=== PATIENT | female | born 1940 | race Caucasian/White ===

== ENCOUNTER → 2016-06-17 | Outpatient (CLI) | payer MEDICARE, OTHER | END | disposition home or self-care (01) | LOC: GMAL 09:40 | PROVIDERS: ATTEND Family Medicine | DX: E55.9 Vitamin D deficiency, unspecified (principal) ==

== ENCOUNTER → 2017-02-03 | Outpatient (CLI) | payer MEDICARE, OTHER | END | disposition home or self-care (01) | LOC: GMAL 11:21 | PROVIDERS: ATTEND Family Medicine | DX: R53.83 Other fatigue (principal); D51.3 Other dietary vitamin B12 deficiency anemia; I10 Essential (primary) hypertension; E11.9 Type 2 diabetes mellitus without complications; E78.4 Other hyperlipidemia ==

== ENCOUNTER → 2017-07-21 | Outpatient (CLI) | payer MEDICARE, OTHER | LOC: GMAL 10:17 | PROVIDERS: ATTEND Family Medicine | DX: E55.9 Vitamin D deficiency, unspecified (principal) ==

== ENCOUNTER 2018-11-01 18:29 | Emergency (ER) | payer MEDICARE, OTHER ==
[2018-11-01] MEDS ORDERED: ASPIRIN TABLET 325 MG TAB ONE (18:46)
[2018-11-01] MEDS ORDERED: NITROGLYCERIN 0.4 MG 25 EA TAB SL ONE ×2 (18:46→19:29)
[2018-11-01 19:05] VITALS: TEMP 97.4
--- NOTE | 2018-11-01 19:28 | RAD ---
EXAM: XR Chest, 1 View CLINICAL HISTORY: 78 years old and is Female; chest pain TECHNIQUE: Frontal view of the chest. COMPARISON: No relevant prior studies available. FINDINGS: Limitations: None. Lungs: Minimal left basilar scar or atelectasis. Pleural space: Unremarkable. No pneumothorax. Heart: Coronary bypass changes present. Mediastinum: Unremarkable. Bones/joints: Unremarkable. IMPRESSION: No significant acute abnormality noted. Electronically signed by: Su Pacheco MD 11/01/2018 7:26 PM CDT
[2018-11-01] MEDS ORDERED: ASPIRIN TABLET 325 MG TAB PO ONE ×2 (19:29→20:36)
--- NOTE | 2018-11-01 20:29 | ED.PDOC ---
History of Present Illness - General Chief Complaint: Chest Pain/MS Stated Complaint: chest pain,shortness of breath Time Seen by Provider: 11/01/18 18:44 Source: patient, family Exam Limitations: no limitations - History of Present Illness Initial Comments: 78 yo female with known CAD presents c/o intermittent chest pain x 2 days. None presently. Timing/Duration: 1/2 hour, changing over time, resolved prior to arrival Severity/Quality: mild, sharp, tightness Location: central Chest Pain Radiation: back Activities at Onset: none Prior Chest Pain/Cardiac Workup: other - CABG; no stress tests or cath in many years Improving Factors: other - NTG Worsening Factors: nothing Nitro Today/Relief: no nitro taken today Associated Symptoms: edema, fatigue, shortness of breath, weakness Allergies/Adverse Reactions: Allergies NO KNOWN ALLERGY Allergy (Verified 11/01/18 19:05) Review of Systems - Review of Systems Constitutional: States: no symptoms reported EENTM: States: no symptoms reported Respiratory: States: see HPI Cardiology: States: see HPI Gastrointestinal/Abdominal: States: no symptoms reported Genitourinary: States: no symptoms reported Musculoskeletal: States: see HPI Skin: States: no symptoms reported Neurological: States: no symptoms reported Hematologic/Lymphatic: States: no symptoms reported Past Medical History (General) - Patient Medical History Hx Stroke: No Hx Cardiac Disorders: Yes Hx Congestive Heart Failure: No Hx Diabetes: No Hx Cancer: Yes - Bladder Surgical History: coronary bypass surgery, tonsillectomy, Hysterectomy - Vaccination History Hx Influenza Vaccination: Yes Hx Pneumococcal Vaccination: Yes - Social History Hx Tobacco Use: No Family Medical History - Family History Mother Family History: Unknown Living Status: Unknown Physical Exam - Physical Exam General Appearance: Alert, Comfortable, No apparent distress Eyes, Ears, Nose, Throat Exam: normal ENT inspection Neck: supple, normal inspection Respiratory: lungs clear, no respiratory distress Cardiovascular/Chest: regular rate, rhythm, no JVD, no murmur Gastrointestinal/Abdominal: non tender, soft, no organomegaly Extremity: normal range of motion, normal inspection, no calf tenderness, other - left leg slightly swollen - chronic; point tenderness to her upper back, left of midline Neurologic: alert, normal mood/affect, oriented x 3 Skin Exam: normal color, warm/dry Progress - Results/Orders Results/Orders: Tr <0.02 D-d 0.4 Hgb 13 - EKG/XRAY/CT EKG: Sinus, nonspecific ST T wave Chg - NSR @ 76; nml axis, intervals, QRS, ST segments; nonspecific T wave changes XRAY: chest - no acute process - Consult/PCP Time Called: 19:20 Consult/PCP: Dr. Green - accepted in transfer Departure - Departure Clinical Impression: Chest pain Qualifiers: Chest pain type: unspecified Qualified Code(s): R07.9 - Chest pain, unspecified Time of Disposition: 20:35 Disposition: Transfer to Hospital Condition: Good Transfer to Outside Facility - Transfer Information Accepting Provider:: Dr. Green Accepting Facility: [facility] Reason for Transfer: required specialist not available
[2018-11-01 22:40] VITALS: BP 145/64; O2SAT 96
== END 2018-11-01 22:48 | disposition short-term general hospital (02) ==
LOC: ER 18:29
DX: R07.9 Chest pain, unspecified (principal); I25.10 Atherosclerotic heart disease of native coronary artery without angina pectoris; Z95.1 Presence of aortocoronary bypass graft; Z85.51 Personal history of malignant neoplasm of bladder

== ENCOUNTER → 2019-02-13 | Outpatient (CLI) | payer MEDICARE, OTHER | LOC: GMAL 10:18 | PROVIDERS: ATTEND Family Medicine | DX: D50.8 Other iron deficiency anemias (principal); E55.9 Vitamin D deficiency, unspecified; I10 Essential (primary) hypertension; E78.49 Other hyperlipidemia ==

== ENCOUNTER → 2020-03-04 | Outpatient (CLI) | payer MEDICARE, OTHER | LOC: GMAL 11:01 | PROVIDERS: ATTEND Family Medicine | DX: D51.3 Other dietary vitamin B12 deficiency anemia (principal); E55.9 Vitamin D deficiency, unspecified; Z79.899 Other long term (current) drug therapy; E11.9 Type 2 diabetes mellitus without complications; E78.49 Other hyperlipidemia ==

== ENCOUNTER 2020-06-26 19:18 | Emergency (ER) | payer MEDICARE, OTHER ==
[2020-06-26] MEDS ORDERED: PANTOPRAZOLE SODIUM IV 40 MG VIAL IV ONE (19:30)
[2020-06-26] MEDS ORDERED: SUCRALFATE 1 GM/10 ML 1 GM UD PO ONE (19:30)
--- NOTE | 2020-06-26 20:19 | RAD ---
ABDOMEN SERIES AND CHEST, XR CLINICAL HISTORY: Nausea and vomiting. COMPARISON: CT abdomen and pelvis September 14, 2018 TECHNIQUE: Two views of the abdomen. Single frontal view of the chest FINDINGS: Chest: Heart is normal in size. There is been prior median sternotomy. There is aortic arch atherosclerosis. Normal pulmonary vascularity. There is mild left lower lobe atelectasis/scar. No consolidation. Pleural spaces are clear. Lungs are hyperinflated. There is mild lower thoracic degenerative change. Abdomen: Scattered air and stool throughout the colon. There is scattered mild small bowel air. There is no free air. No pathologic abdominal calcifications. Bowel caliber and distribution is normal. There are mild degenerative lumbar spine changes. Moderate degenerative hypertrophic changes are seen throughout the iliac bones and proximal femurs. IMPRESSION: 1. Hyperinflation. Left lower lobe atelectasis/scar. No acute chest disease. 2. No acute finding within the abdomen. Electronically signed by: Mishel Lozoya DO 06/26/2020 8:18 PM THEATRICAL PERFORMER
[2020-06-26] MEDS ORDERED: cefTRIAXone SODIUM 1 GM in SODIUM CHL 0.9% 50ML MIN-BAG+ 50 ML IVPB ONE (20:21)
[2020-06-26] MEDS ORDERED: levoFLOXacin 500MG IV 500 MG in PREMIX BAG 1 BAG IVPB ONE (20:25)
--- NOTE | 2020-06-26 20:25 | CT ---
EXAM: CT head CLINICAL INDICATION: Slurred speech COMPARISON: There is no previous study for comparison. TECHNIQUE: CT scan was done using contiguous axial 5 mm sections through the brain. This exam was performed according to our departmental dose-optimization program, which includes automated exposure control, adjustment of the mA and/or kV according to patient size and/or use of iterative reconstruction technique. FINDINGS: There is no midline shift, mass effect, or extraaxial fluid collection. There is no evidence of acute intracranial hemorrhage, mass lesion, or cerebral edema. Mild diffuse atrophy and nonspecific chronic ischemic changes are identified. Bone window images reveal no evidence of a skull fracture. IMPRESSION: No evidence of an acute intracranial process. Electronically signed by: Wesley Nixon MD 06/26/2020 8:23 PM MAMMAL CONTROL AGENT
[2020-06-26] MEDS ORDERED: IPRATROPIUM/ALBUTEROL 3 ML VIAL NEB ONE ×2 (20:28→20:29)
--- NOTE | 2020-06-26 20:56 | ED.PDOC ---
History of Present Illness - General Chief Complaint: Abdominal Pain Stated Complaint: abd pain Time Seen by Provider: 06/26/20 19:19 Source: patient Exam Limitations: no limitations - History of Present Illness Initial Comments: The patient is a 80-year-old female presented emergency room secondary to feeling poorly for the last 3 to 4 days. Family reports that she has been a little bit unsteady on her feet and there is some question of may be slurring her speech earlier in the day. She is alert and oriented currently. She is pleasant and cooperative. On exam she does have some epigastric discomfort to palpation. Is currently being treated for bladder cancer and has had urinary tract infections in the past. She thinks she may have run a low-grade temper ature earlier in the day. She did have some nausea and vomiting x1 today. No blood. Timing/Duration: other - 2 days Severity: moderate Improving Factors: nothing Worsening Factors: nothing Associated Symptoms: malaise, nausea/vomiting Allergies/Adverse Reactions: Allergies NO KNOWN ALLERGY Allergy (Verified 11/01/18 19:05) Home Medications: Ambulatory Orders Amoxicillin & Pot Clavulanate [Augmentin Tab] 875 mg PO BID #14 tab 06/26/20 Ascorbic Acid [Vitamin C] 1,000 mg PO 06/26/20 Aspirin [Aspirin 81 Low Dose] 81 mg PO DAILY 06/26/20 Cholecalciferol [Vitamin D-3] 2,000 unit PO DAILY 06/26/20 Ciprofloxacin [Cipro] 500 mg PO BID #14 tab 06/26/20 Escitalopram Oxalate [Lexapro] 20 mg PO DAILY 06/26/20 Ferrous Sulfate [Iron] 325 mg PO DAILY 06/26/20 Fexofenadine HCl [24Hr Allergy Relief] 180 mg PO DAILY PRN 06/26/20 Guaifenesin [Mucinex] 600 mg PO Q12HR PRN 06/26/20 Metformin HCl [Fortamet] 500 mg PO BID 06/26/20 Simvastatin 80 mg PO BEDTIME 06/26/20 Review of Systems - Review of Systems Constitutional: States: malaise EENTM: States: no symptoms reported Respiratory: States: no symptoms reported Cardiology: States: no symptoms reported Gastrointestinal/Abdominal: States: abdominal pain, nausea Genitourinary: States: frequency Musculoskeletal: States: no symptoms reported Skin: States: no symptoms reported Neurological: States: no symptoms reported Endocrine: States: no symptoms reported All other Systems: No Change from Baseline Past Medical History (General) - Patient Medical History Hx Seizures: No Hx Stroke: No Hx Dementia: No Hx Asthma: No Hx of COPD: No Hx Cardiac Disorders: Yes Hx Congestive Heart Failure: No - cardiac bypass Hx Pacemaker: No Hx Hypertension: No Hx Thyroid Disease: No Hx Diabetes: Yes Hx Gastroesophageal Reflux: No Hx Renal Disease: No Hx Cancer: Yes - Bladder Hx of HIV: No Hx Hepatitis C: No Hx MRSA: No Surgical History: Hysterectomy, other - Vaccination History Hx Tetanus, Diphtheria Vaccination: Yes Hx Influenza Vaccination: Yes Hx Pneumococcal Vaccination: Yes Immunizations Up to Date: Yes - Social History Hx Tobacco Use: No Hx Chewing Tobacco Use: No Hx Alcohol Use: No Hx Substance Use: No Hx Substance Use Treatment: No Hx Depression: Yes - on meds Feels Threatened In Home Enviroment: No Feels Threatened In a Relationship: No Hx Physical Abuse: No Hx Emotional Abuse: No Hx Suspected Abuse: No - Activities of Daily Living Hospice Agency (if applicable):: None - Female History Patient is a Female of Child Bearing Age (10 -59 yrs old): No - Triage Comment ED Triage Comment: states pain and weakness since sono done on 06/24/20 in [facility], Family Medical History - Family History Mother Family History: Unknown Living Status: Unknown Physical Exam - Physical Exam General Appearance: Alert, Comfortable, No apparent distress Eye Exam: bilateral normal Ears, Nose, Throat: hearing grossly normal, normal pharynx Neck: full range of motion, supple Respiratory: lungs clear, normal breath sounds, no respiratory distress, no accessory muscle use Cardiovascular/Chest: normal peripheral pulses, regular rate, rhythm, no edema Peripheral Pulses: radial,right: 2+, radial,left: 2+ Gastrointestinal/Abdominal: soft, other - Epigastric discomfort to palpation. Rectal Exam: deferred Back Exam: no CVA tenderness, no vertebral tenderness Extremity: normal range of motion, non-tender, normal inspection, no pedal edema, normal capillary refill Neurologic: marketing ambassador II-XII nml as tested, alert, normal mood/affect, oriented x 3 Skin Exam: normal color Comments: Vital Signs - 24 hr 06/26/20 06/26/20 19:20 20:30 Temperature 97.8 F Pulse Rate [ 100 H 94 H pulse ox] Respiratory 18 18 Rate Blood Pressure 159/84 134/85 [Left Arm] O2 Sat by Pulse 93 L 91 L Oximetry Progress - Progress Progress: 06/26/20 20:57 The patient is a 80-year-old female presented emergency room secondary to feeling poorly for last couple of days. The patient does have a significant urinary tract infection. Due to her history she is going to be double covered with 2 antibiotics and did receive the first doses tonight. She will be written for these antibiotics to take over the next week or so. She will additionally be written for some Zofran for as needed use. She does have a gastritis as well. She does take Tums or Maalox 3-4 times a day for the next few days. She needs to continue her prescription stomach medication. She is to keep her self well-hydrated. Obviously if the patient is worsening in any way then she needs to return here for repeat evaluation. Urine will be cultured. She is to follow-up early next week for repeat urinalysis with her primary care doctor. ER warnings are given. [email or web address] portillo [id number] - Results/Orders Results/Orders: 06/26/20 19:[address] shows no acute pathology. Chronic changes are present. Acute abdominal series shows some mild scarring in the lung field but no other acute pathology. See report for details. 06/27/20 19:30 EKG STAT shows sinus rhythm at 97 bpm with occasional PACs. Mild right axis deviation. Early right bundle branch block. No definitive ST segment or T wave changes indicative of acute ischemia. Mildly prolonged QT interval. Laboratory Results - last 24 hr 06/26/20 06/26/20 06/26/20 19:38 19:38 19:38 WBC 19.5 H RBC 4.39 Hgb 13.2 Hct 39.8 MCV 90.8 MCH 30.0 MCHC 33.0 RDW 14.1 Plt Count 199 MPV 8.0 Absolute Neuts (auto) 17.50 H Absolute Lymphs (auto) 0.50 L Absolute Monos (auto) 1.40 H Absolute Eos (auto) 0.00 Absolute Basos (auto) 0.10 Neutrophils % 89.7 H Lymphocytes % 2.4 L Monocytes % 7.4 Eosinophils % 0.1 L Basophils % 0.4 PT 11.0 H INR 1.11 PTT (SP) 27.7 Sodium 136 Potassium 3.7 Chloride 102 Carbon Dioxide 23 Anion Gap 14.7 BUN 13 Creatinine 0.64 BUN/Creatinine Ratio 20.3 H Random Glucose 188 H Serum Osmolality 277.0 Lactic Acid Calcium 8.8 Magnesium Total Bilirubin 0.6 AST 20 ALT 21 Alkaline Phosphatase 73 Creatine Kinase 43 CK-MB (CK-2) 1.1 CK-MB (CK-2) % Not Reportable Troponin I < 0.02 B-Natriuretic Peptide 146.0 H Serum Total Protein 7.1 Albumin 4.0 Globulin 3.1 Albumin/Globulin Ratio 1.3 Amylase 27 L Lipase TSH Urine Color Urine Appearance Urine pH Ur Specific Currie Urine Protein Urine Glucose (UA) Urine Ketones Urine Blood Urine Nitrite Urine Bilirubin Urine Urobilinogen Ur Leukocyte Esterase Urine RBC Urine WBC Ur Epithelial Cells Urine Bacteria Urine Mucus 06/26/20 06/26/20 06/26/20 19:38 19:38 19:44 WBC RBC Hgb Hct MCV MCH MCHC RDW Plt Count MPV Absolute Neuts (auto) Absolute Lymphs (auto) Absolute Monos (auto) Absolute Eos (auto) Absolute Basos (auto) Neutrophils % Lymphocytes % Monocytes % Eosinophils % Basophils % PT INR PTT (SP) Sodium Potassium Chloride Carbon Dioxide Anion Gap BUN Creatinine BUN/Creatinine Ratio Random Glucose Serum Osmolality Lactic Acid 1.3 Calcium Magnesium 1.8 Total Bilirubin AST ALT Alkaline Phosphatase Creatine Kinase CK-MB (CK-2) CK-MB (CK-2) % Troponin I B-Natriuretic Peptide Serum Total Protein Albumin Globulin Albumin/Globulin Ratio Amylase Lipase 19 L TSH 1.53 Urine Color Yellow Urine Appearance Cloudy Urine pH 6.5 Ur Specific Currie 1.025 Urine Protein 100 H Urine Glucose (UA) Negative Urine Ketones Negative Urine Blood Small H Urine Nitrite Positive H Urine Bilirubin Negative Urine Urobilinogen 0.2 Ur Leukocyte Esterase Large H Urine RBC 5-10 H Urine WBC Tntc H Ur Epithelial Cells 0-1 Urine Bacteria 4+ H Urine Mucus Trace Departure - Departure Clinical Impression: Acute cystitis Qualifiers: Hematuria presence: without hematuria Qualified Code(s): N30.00 - Acute cystitis without hematuria Acute gastritis Qualifiers: Gastritis type: unspecified gastritis Gastritis bleeding: without bleeding Qualified Code(s): K29.00 - Acute gastritis without bleeding Disposition: Discharge to Home or Self Care Condition: Fair Departure Forms: ED Discharge - Pt. Copy, Patient Portal Self Enrollment Instructions: DI for Abdominal Pain-Adult, Urinary Tract Infections in Adults, Gastritis (DC) Diet: bland diet Activity: increase activity as tolerated Referrals: Prince Mendoza III, MD [Primary Care Provider] - 1-5 Days Prescriptions: Amoxicillin & Pot Clavulanate [Augmentin Tab] 875 mg PO BID #14 tab Ciprofloxacin [Cipro] 500 mg PO BID #14 tab Home Medications: Ambulatory Orders Amoxicillin & Pot Clavulanate [Augmentin Tab] 875 mg PO BID #14 tab 06/26/20 Ascorbic Acid [Vitamin C] 1,000 mg PO 06/26/20 Aspirin [Aspirin 81 Low Dose] 81 mg PO DAILY 06/26/20 Cholecalciferol [Vitamin D-3] 2,000 unit PO DAILY 06/26/20 Ciprofloxacin [Cipro] 500 mg PO BID #14 tab 06/26/20 Escitalopram Oxalate [Lexapro] 20 mg PO DAILY 06/26/20 Ferrous Sulfate [Iron] 325 mg PO DAILY 06/26/20 Fexofenadine HCl [24Hr Allergy Relief] 180 mg PO DAILY PRN 06/26/20 Guaifenesin [Mucinex] 600 mg PO Q12HR PRN 06/26/20 Metformin HCl [Fortamet] 500 mg PO BID 06/26/20 Simvastatin 80 mg PO BEDTIME 06/26/20 Additional Instructions: The patient is a 80-year-old female presented emergency room secondary to feeling poorly for last couple of days. The patient does have a significant urinary tract infection. Due to her history she is going to be double covered with 2 antibiotics and did receive the first doses tonight. She will be written for these antibiotics to take over the next week or so. She will additionally be written for some Zofran for as needed use. She does have a gastritis as well. She does take Tums or Maalox 3-4 times a day for the next few days. She needs to continue her prescription stomach medication. She is to keep her self well-hydrated. Obviously if the patient is worsening in any way then she needs to return here for repeat evaluation. Urine will be cultured. She is to follow-up early next week for repeat urinalysis with her primary care doctor. ER warnings are given.
[2020-06-26] MEDS ORDERED: ONDANSETRON ODT (ER DISP) 8 MG TAB PO ONE ×2 (21:31→21:48)
[2020-06-26 22:32] VITALS: BP 127/69; TEMP 97.3; O2SAT 93
== END 2020-06-26 21:45 | disposition home or self-care (01) ==
LOC: ER 19:18
DX: N30.00 Acute cystitis without hematuria (principal); K29.00 Acute gastritis without bleeding; I45.10 Unspecified right bundle-branch block; I49.1 Atrial premature depolarization; F32.9 Major depressive disorder, single episode, unspecified; I50.9 Heart failure, unspecified; E11.9 Type 2 diabetes mellitus without complications; Z20.822 Contact with and (suspected) exposure to COVID-19; Z95.1 Presence of aortocoronary bypass graft; Z85.51 Personal history of malignant neoplasm of bladder; Z79.84 Long term (current) use of oral hypoglycemic drugs; Z79.899 Other long term (current) drug therapy; Z79.82 Long term (current) use of aspirin
CPT/HCPCS: 36415; 70450; 74019; 80053; 81001; 82150; 82550; 82553; 83605; 83690; 83735; 83880; 84443; 84484; 85025; 85610; 85730; 87086; 87088; 87186; 87635; 93005; 94640; J0696; J1956; J7050; J7620